=== PATIENT | female | born 1985 | race Caucasian/White ===

== ENCOUNTER 2016-08-27 10:44 | Emergency (ER) | payer SELFPAY | END 2016-08-27 12:15 | disposition left against medical advice (07) | LOC: UCCORT 10:44 | DX: M54.9 Dorsalgia, unspecified (principal); Z53.21 Procedure and treatment not carried out due to patient leaving prior to being seen by health care provider ==

== ENCOUNTER 2016-08-27 13:42 | Emergency (ER) | payer SELFPAY ==
[2016-08-27 14:50] VITALS: BP 132/75
--- NOTE | 2016-08-27 17:22 | UC ---
Back Pain HPI - HPI Summary HPI Summary: pt p/w 1 week of acute on chronic back pain. pain is sharp 7/10 in the lower back and radiates to the back of the calf. w/w walking. in fact, pt reports that she has been so weak that she is unable to make it down the stairs for food or water. so she has been living on dry cereal. she reports multiple falls d/t weakness and dizziness. she also reports syncopal episodes associated with dizziness and left cp and sob. cp is describes as squeezing. fh pos for mi <50 yo. - History of Current Complaint Chief Complaint: UCBackPain Stated Complaint: BACK PAIN Time Seen by Provider: 08/27/16 14:45 Hx Obtained From: Patient Hx Last Menstrual Period: 08/25/16 ?: No Onset/Duration: Gradual Onset, Lasting Weeks - ~3months, Worse Since - last week Severity Initially: Moderate Severity Currently: Moderate Pain Intensity: 7 Pain Scale Used: 0-10 Numeric Character: Sharp, Dull, Aching Aggravating: Movement, Walking Alleviating: Rest Associated Signs And Symptoms: Positive: Weakness, Numbness - chronic, Tingling - chronic. Negative: Swelling, Redness, Bruising, Fever, Abdominal Pain, Flank Pain - Allergies/Home Medications Allergies/Adverse Reactions: Allergies Allergy/AdvReac Type Severity Reaction Status Date / Time Amoxicillin Allergy Intermediate Hives Verified 08/27/16 14:47 Haloperidol [From Haldol] AdvReac See Comment Verified 08/27/16 14:47 Sumatriptan [From Imitrex] AdvReac Headache Verified 08/27/16 14:47 Home Medications: Home Medications Ibuprofen TAB* [Motrin TAB* 600 MG] 600 mg PO Q6H PRN 08/27/16 [History Confirmed 08/27/16] PMH/Surg Hx/FS Hx/Imm Hx Endocrine History Of: Reports: Thyroid Disease - Hypothyroidism Denies: Diabetes Cardiovascular History Of: Denies: Cardiac Disorders, Hypertension, Pacemaker/ICD, Congestive Heart Failure, Deep Vein Thrombosis Respiratory History Of: Reports: Bronchitis Denies: COPD, Asthma, Pneumonia, Pulmonary Embolism GI/ History Of: Reports: Ulcer - gastric Denies: Gastrointestinal Bleed, Gall Bladder Disease, Kidney Stones Neurological History Of: Reports: Migraine Denies: TIA, CVA, Dementia, Seizures Psychological History Of: Reports: Anxiety, Depression, Bipolar Disorder Denies: Schizophrenia Cancer History Of: Denies: Lung Cancer Other History Of: Negative For: Anticoagulant Therapy - Surgical History Surgical History: Yes Surgery Procedure, Year, and Place: C-Sections, 2008 2010, [place] - Family History Known Family History: Positive: Hypertension Negative: Cardiac Disease, Diabetes - Social History Occupation: Employed Part-time Alcohol Use: None Alcohol Amount: not since 2013 Substance Use Type: Marijuana, Other - h/o coccaine abuse Substance Use Comment - Amount & Last Used: DMX--none since 12/2014 Smoking Status (MU): Heavy Every Day Tobacco Smoker Type: Cigarettes Amount Used/How Often: 1/2 ppd Length of Time of Smoking/Using Tobacco: 10 Years Have You Smoked in the Last Year: Yes Household Exposure Type: Cigarettes Cessation Counseling: Counseled 3+Min - 10 Min - Immunization History Most Recent Influenza Vaccination: never had one Most Recent Tetanus Shot: 2009 Most Recent Pneumonia Vaccination: NA Review of Systems Constitutional: Fatigue Skin: Negative Eyes: Negative ENT: Negative Respiratory: Shortness Of Breath Cardiovascular: Chest Pain Gastrointestinal: Other - nausea Genitourinary: Negative Motor: Weakness Neurovascular: Negative Musculoskeletal: Myalgia Neurological: Weakness, Numbness - chronic Psychological: Negative All Other Systems Reviewed And Are Negative: Yes Physical Exam Triage Information Reviewed: Yes Appearance: Well-Appearing, Pain Distress - mild, Obese, Other: - pt in wheel chair Vital Signs: Initial Vital Signs Temp 99.0 F 08/27/16 14:42 Pulse 91 08/27/16 14:42 Resp 14 08/27/16 14:42 BP 132/75 08/27/16 14:42 Pulse Ox 100 08/27/16 14:42 Vital Signs Reviewed: Yes Eyes: Positive: Conjunctiva Clear. Negative: Discharge ENT: Positive: Hearing grossly normal. Negative: Muffled/hoarse voice Neck exam: Normal Neck: Positive: Supple Respiratory: Positive: Lungs clear, Normal breath sounds, No respiratory distress, No accessory muscle use Cardiovascular: Positive: RRR, No Murmur Musculoskeletal: Positive: Strength Intact, No Edema, ROM Limited @ - d/t pain Neurological: Positive: Alert, Muscle Tone Normal - strength sensation and reflexes intact bl Psychological: Positive: Age Appropriate Behavior Skin Exam: Normal Back Pain Course/Dx - Differential Dx/Diagnosis Differential Diagnosis/HQI/PQRI: Herniated Disc, Strain - chronic low back pain , cp, lightheadedness, Other - cp, mi, angina Provider Diagnoses: cp unknown judit, syncope, lightheadedness, low back pain Discharge - Discharge Plan Condition: Stable Disposition: AGAINST MEDICAL ADVICE Prescriptions: Cyclobenzaprine TAB* [Flexeril TAB*] 10 mg PO TID PRN #30 tab PRN Reason: Pain Patient Education Materials: Syncope (ED), Lightheadedness (ED), Low Back Strain (ED) Referrals: MARIANO Jaffe [Primary Care Provider] - As Soon As Possible Additional Instructions: YOU ARE LEAVING AGAINST MEDICAL ADVISE. WE HAVE RECOMMENDED TRANSFER TO THE ED FOR THOUROUGH EVALUATION OF YOUR CHEST PAIN. YOU HAVE REFUSED. YOUR RISKS INCLUDE DAMAGE TO THE HEART, CARDIAC ARRYTHMIA, CARDIAC ARREST AND . IF YOU CHANGE YOUR MIND, YOU CAN STILL GO TO THE ED AT ANY TIME. YOU WOULD LIKELY BENEFIT FROM OSTEOPATHIC TREATMENT. WE RECOMMEND THAT YOU FIND AN OSTEOPATHIC PHYSICIAN IN YOUR AREA WHO FOCUSES EXCLUSIVELY ON OSTEOPATHIC MANIPULATIVE MEDICINE WITH EXPERTISE IN MYOFACIAL, LYMPHATIC, VISCERAL AND INTEROSSEOUS WORK
== END 2016-08-27 16:20 | disposition left against medical advice (07) ==
LOC: UCCORT 13:42
DX: R07.89 Other chest pain (principal); R55 Syncope and collapse; R42 Dizziness and giddiness; M54.5 Low back pain; E03.9 Hypothyroidism, unspecified; G43.909 Migraine, unspecified, not intractable, without status migrainosus; F41.8 Other specified anxiety disorders; F31.9 Bipolar disorder, unspecified; E66.9 Obesity, unspecified; Z88.1 Allergy status to other antibiotic agents; Z88.8 Allergy status to other drugs, medicaments and biological substances; F17.210 Nicotine dependence, cigarettes, uncomplicated; Z71.6 Tobacco abuse counseling
CPT/HCPCS: 93005; 99212; G0463

== ENCOUNTER 2017-02-03 14:38 | Inpatient (IN) | payer OTHER ==
[2017-02-03 17:11] LABS: Hematocrit 38 % (35-47); Hemoglobin 12.9 g/dl (12.0-16.0); Mean Corpuscular HGB Conc 34 g/dl (31-36); Mean Corpuscular Hemoglobin 29 pg (27-31); Mean Corpuscular Volume 83 fL (80-97); Mean Platelet Volume 8 um3 (7.4-10.4); Red Blood Count 4.54 10^6/ul (4.0-5.4); Red Cell Distribution Width 15 % (10.5-15); White Blood Count 9.8 10^3/ul (3.5-10.8)
[2017-02-03 17:29] LABS: Urine Bacteria 1+ (Absent); Urine Bilirubin Negative (Negative); Urine Glucose Negative (Negative); Urine Nitrite Negative (Negative)
[2017-02-03 17:30] LABS: ALT 18 U/L (7-52); AST 20 U/L (13-39); Alkaline Phosphatase 36 U/L (34-104); Anion Gap 4 mmol/L (2-11); BUN/Creatinine Ratio 10.2 (8-20); Blood Urea Nitrogen 9 mg/dL (6-24); CO2 Carbon Dioxide 26 mmol/L (22-32); Calcium 9.1 mg/dL (8.6-10.3); Chloride 107 mmol/L (101-111); EGFR African American 96.4 (>60); EGFR Non-African American 74.9 (>60); Glucose 90 mg/dL (70-100); Potassium 3.9 mmol/L (3.5-5.0); Sodium 137 mmol/L (133-145)
[2017-02-03 17:35] LABS: Benzodiazepine Urine Screen None Detected (None Detect)
[2017-02-03] MEDS ORDERED: Tetan/Diph/Pertus SYR(Tdap)* 0.5 ML SYR(BOOSTRIX) use SYR IM ONE (17:38)
[2017-02-03] MEDS ORDERED: Ketorolac INJ* 60 MG/2 ML VIAL IM ONE (17:38)
[2017-02-03 17:49] LABS: Acetaminophen < 15 mcg/mL; Alcohol < 10 mg/dL (<10); Salicylate < 2.50 mg/dL (<30)
[2017-02-03 17:59] LABS: TSH (Thyroid Stimulating Horm) 7.31 mcIU/mL (0.34-5.60)
--- NOTE | 2017-02-03 19:00 | ED ---
Chastity Pagan Thomas, scribed for Hugh Myles MD on 02/03/17 at 1747 . Psychiatric Complaint - HPI Summary HPI Summary: The pt is a 31 y/o F presenting to the ED c/o SI without a plan. She reports that she fell off the wagon a week ago. She says that she is homeless starting today. She has been self-harming via cutting by a shaving razor. She last cut herself yesterday. She has cuts to her wrists. She denies any other plans to hurt herself. She has stopped taking antidepressants as of a year ago. She has auditory hallucinations, paranoia, decreased appetite, and insomnia. She additionally c/o lower abd pain that began 5 days ago. Three days ago, she had an ultrasound performed at [place] that showed a ruptured ovarian cyst. The pt rates the pain 8/10. The pain is aggravated and alleviated by nothing. The patient has treated the pain with nothing [employer]. She additionally c/o lower back pain. She is requesting NSAIDs and does not want opioids. PMHx: depression , anxiety, sciatica. PSHx: C-sections. SHx: smoking, marijuana use. 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 FHx: DM, schizophrenia. - History Of Current Complaint Chief Complaint: EDAbdPain Time Seen by Provider: 02/03/17 17:27 Hx Obtained From: Patient Hx Last Menstrual Period: 08/25/16 Onset/Duration: Lasting Weeks - 1, Still Present Timing: Constant Character: Depressed Alleviating Factor(s): Nothing Associated Signs And Symptoms: Positive: Hallucinating - auditory, Paranoid Behavior, Sleep Disturbance, Appetite Change Related History: Positive For: Prior Psychiatric Issues Has Suicidal: Reports: Thoughts, Demonstrates Gesture. Denies: With A Plan Ingestion History: Type/Name Of Drug - Marijuana starting a week ago - Allergies/Home Medications Allergies/Adverse Reactions: Allergies Allergy/AdvReac Type Severity Reaction Status Date / Time Amoxicillin Allergy Intermediate Hives Verified 08/27/16 14:47 Haloperidol [From Haldol] AdvReac See Comment Verified 08/27/16 14:47 Sumatriptan [From Imitrex] AdvReac Headache Verified 08/27/16 14:47 Home Medications: Home Medications NK [No Home Medications Reported] 02/03/17 [History Confirmed 02/03/17] PMH/Surg Hx/FS Hx/Imm Hx Previously Healthy: No Endocrine/Hematology History: Reports: Hx Thyroid Disease - Hypothyroidism Denies: Hx Anticoagulant Therapy, Hx Blood Disorders, Hx Blood Transfusions, Hx Bone Marrow Disease, Hx Diabetes, Hx Systemic Lupus Erythematosus, Hx Sickle Cell Disease, Hx Anemia, Hx Unexplained Bleeding, Other Endocrine/Hematological Disorders Cardiovascular History: Denies: Hx Aneurysm, Hx Angina, Hx Angioplasty, Hx Auto Implanted Cardiovert Defib, Hx Cardiac Arrest, Hx Cardiomegaly, Hx Congenital Heart Disease, Hx Congestive Heart Failure, Hx Coronary Artery Disease, Hx Deep Vein Thrombosis, Hx Embolism, Hx Hypercholesterolemia, Hx Hypotension, Hx Hypertension, Hx Pacemaker/ICD, Hx Peripheral Vascular Disease, Hx Rheumatic Fever, Hx Syncope, Hx Valvular Heart Disease, Other Cardiovascular Problems/Disorders Respiratory History: Reports: Hx Seasonal Allergies Denies: Hx Asthma, Hx Chronic Bronchitis, Hx Chronic Obstructive Pulmonary Disease (COPD), Hx Cystic Fibrosis, Hx Lung Cancer, Hx Pleural Effusion, Hx Pneumonia, Hx Pulmonary Edema, Hx Pulmonary Embolism, Hx Sleep Apnea, Other Respiratory Problems/Disorders GI History: Reports: Hx Gastroesophageal Reflux Disease, Hx Ulcer - gastric Denies: Hx Cirrhosis, Hx Crohn's Disease, Hx Diverticulosis, Hx Gall Bladder Disease, Hx Gastrointestinal Bleed, Hx Hiatal Hernia, Hx Irritable Bowel, Hx Jaundice, Hx Obstructive Bowel, Hx Ileostomy, Hx Pyloric Stenosis, Other GI Disorders History: Denies: Hx Acute Renal Failure, Hx Benign Prostatic Hyperplasia, Hx Chronic Renal Failure, Hx Dialysis, Hx Kidney Infection, Hx Kidney Stones, Other Problems/Disorders Musculoskeletal History: Reports: Hx Back Problems, Hx Scoliosis Denies: Hx Arthritis, Hx Bursitis, Hx Congenital Bone Abnormalities, Hx Fibromyalgia, Hx Gout, Hx Orthopedic Injury, Hx Osteoporosis, Hx Tendonitis, Other Musculoskeletal History Sensory History: Reports: Hx Contacts or Glasses Denies: Hx Cataracts, Hx Eye Injury, Hx Eye Prosthesis, Hx Glaucoma, Hx Legally Blind, Hx Macular Degeneration, Hx Vision Problem, Hx Deafness, Hx Hearing Aid, Hx Hearing Problem, Other Sensory Impairments Opthamlomology History: Reports: Hx Contacts or Glasses Denies: Hx Cataracts, Hx Eye Injury, Hx Eye Prosthesis, Hx Glaucoma, Hx Legally Blind, Hx Macular Degeneration, Hx Vision Problem, Other Sensory Impairments Neurological History: Reports: Hx Migraine Denies: Hx Dementia, Hx Developmental Delay, Hx Headaches, Hx Nerve Disease, Hx Seizures, Hx Spinal Cord Injury, Hx Transient Ischemic Attacks (TIA), Other Neuro Impairments/Disorders Psychiatric History: Reports: Hx Anxiety, Hx Depression, Hx Panic Disorder, Hx Inpatient Treatment, Hx Community Mental Health Tx, Hx Bipolar Disorder, Hx Suicide Attempt, Hx Substance Abuse, Other Psychiatric Issues/Disorders Denies: Hx Attention Deficit Hyperactivity Disorder, Hx Eating Disorder, Hx Post Traumatic Stress Disorder, Hx Schizophrenia, Hx of Violent Episodes Against Others - Surgical History Surgery Procedure, Year, and Place: C-Sections, 2008 2010, [place] Hx Anesthesia Reactions: No Infectious Disease History: No Infectious Disease History: Denies: Hx Clostridium Difficile, Hx Hepatitis, Hx Human Immunodeficiency Virus (HIV), Hx of Known/Suspected MRSA, Hx Shingles, Hx Tuberculosis, Hx Known/ Suspected VRE, Hx Known/Suspected VRSA, History Other Infectious Disease, Traveled Outside the [place] in Last 30 Days - Family History Known Family History: Positive: Hypertension Negative: Cardiac Disease, Diabetes - Social History Alcohol Use: None Alcohol Amount: not since 2013 Substance Use Type: Reports: Marijuana, Other Substance Use Comment - Amount & Last Used: DMX--none since 12/2014 Hx Tobacco Use: Yes Smoking Status (MU): Heavy Every Day Tobacco Smoker Type: Cigarettes Amount Used/How Often: 1/2 ppd Length of Time of Smoking/Using Tobacco: 10 Years Have You Smoked in the Last Year: Yes Review of Systems Negative: Fever Positive: Abdominal Pain - lower abd, US showed ruptured cyst recently Positive: Other - POS: back pain Psychological: Other - POS: SI without a plan, recent self-harm, appetite reduction, sleep disturbance, auditory hallucinations, paranoia All Other Systems Reviewed And Are Negative: Yes Physical Exam - Summary Physical Exam Summary: The patient is well-nourished in no acute distress and in no acute pain. The skin is warm and dry and skin color reflects adequate perfusion. There are superficial abrasions to her left arm. HEENT: The head is normocephalic and atraumatic. The pupils are equal and reactive. The conjunctivae are clear and without drainage. Nares are patent and without drainage. Mouth reveals moist mucous membranes and the throat is without erythema and exudate. The external ears are intact. The ear canals are patent and without drainage. The tympanic membranes are intact. Neck is supple with full range of motion and non-tender. There are no carotid bruits. There is no neck vein distension. Respiratory: Chest is non-tender. Lungs are clear to auscultation and breath sounds are symmetrical and equal. Cardiovascular: Heart is regular rate and rhythm. There is no murmur or rub auscultated. There is no peripheral edema and pulses are symmetrical and equal. Abdomen: The abdomen is soft and obese. It is tender to the LLQ. There are normal bowel sounds heard in all four quadrants and there is no organomegaly palpated. Musculoskeletal: There is no back pain noted. Extremities are non-tender with full range of motion. There is good capillary refill. There is no peripheral edema or calf tenderness elicited. Neurological: Patient is alert and oriented to person, place and time. The patient has symmetrical motor strength in all four extremities. Cranial nerves are grossly intact. Deep tendon reflexes are symmetrical and equal in all four extremities. Psychiatric: She is depressed and angry. Triage Information Reviewed: Yes Vital Signs On Initial Exam: Initial Vitals Temp Pulse Resp BP Pulse Ox 98.6 F 63 16 143/82 100 02/03/17 14:46 02/03/17 14:46 02/03/17 14:46 02/03/17 14:46 02/03/17 14:46 Vital Signs Reviewed: Yes - [place] Coma Scale Coma Scale Total: 15 Diagnostics - Vital Signs Vital Signs Temp Pulse Resp BP Pulse Ox 02/03/17 15:06 100 F 98 18 131/81 99 02/03/17 14:46 98.6 F 63 16 143/82 100 - Laboratory Lab Results: Lab Results 02/03/17 02/03/17 02/03/17 Range/Units 15:15 15:15 17:03 WBC (3.5-10.8) 10^3/ul RBC (4.0-5.4) 10^6/ul Hgb (12.0-16.0) g/dl Hct (35-47) % MCV (80-97) fL MCH (27-31) pg MCHC (31-36) g/dl RDW (10.5-15) % Plt Count (150-450) 10^3/ul MPV (7.4-10.4) um3 Neut % (Auto) (38-83) % Lymph % (Auto) (25-47) % [place] % (Auto) (1-9) % Eos % (Auto) (0-6) % Baso % (Auto) (0-2) % Absolute Neuts (auto) (1.5-7.7) 10^3/ul Absolute Lymphs (auto) (1.0-4.8) 10^3/ul Absolute Monos (auto) (0-0.8) 10^3/ul Absolute Eos (auto) (0-0.6) 10^3/ul Absolute Basos (auto) (0-0.2) 10^3/ul Absolute Nucleated RBC 10^3/ul Nucleated RBC % Sodium 137 (133-145) mmol/L Potassium 3.9 (3.5-5.0) mmol/L Chloride 107 (101-111) mmol/L Carbon Dioxide 26 (22-32) mmol/L Anion Gap 4 (2-11) mmol/L BUN 9 (6-24) mg/dL Creatinine 0.88 (0.51-0.95) mg/dL Est GFR ( Amer) 96.4 (>60) Est GFR (Non-Af Amer) 74.9 (>60) BUN/Creatinine Ratio 10.2 (8-20) Glucose 90 (70-100) mg/dL Calcium 9.1 (8.6-10.3) mg/dL Total Bilirubin 0.50 (0.2-1.0) mg/dL AST 20 (13-39) U/L ALT 18 (7-52) U/L Alkaline Phosphatase 36 (34-104) U/L Total Protein 7.0 (6.4-8.9) g/dL Albumin 4.0 (3.2-5.2) g/dL Globulin 3.0 (2-4) g/dL Albumin/Globulin Ratio 1.3 (1-3) TSH Pending Beta HCG, Quant < 0.60 mIU/mL Urine Color Yellow Urine Appearance Cloudy Urine pH 7.0 (5-9) Ur Specific [place] 1.025 (1.010-1.030) Urine Protein Negative (Negative) Urine Ketones Negative (Negative) Urine Blood Negative (Negative) Urine Nitrate Negative (Negative) Urine Bilirubin Negative (Negative) Urine Urobilinogen Negative (Negative) Ur Leukocyte Esterase Trace H (Negative) Urine WBC (Auto) Trace(0-5/hpf) (Absent) Urine RBC (Auto) Absent (Absent) Ur Squamous Epith Cells Present H (Absent) Calcium Oxalate Crystal Present H (Absent) Urine Bacteria 1+ H (Absent) Urine Glucose Negative (Negative) Salicylates Pending Urine Opiates Screen None detected (None Detect) Acetaminophen Pending Ur Barbiturates Screen None detected (None Detect) Ur Phencyclidine Scrn None detected (None Detect) Ur Amphetamines Screen None detected (None Detect) U Benzodiazepines Scrn None detected (None Detect) Urine Cocaine Screen None detected (None Detect) U Cannabinoids Screen Presumptive positive H (None Detect) Serum Alcohol Pending 02/03/17 Range/Units 17:03 WBC 9.8 (3.5-10.8) 10^3/ul RBC 4.54 (4.0-5.4) 10^6/ul Hgb 12.9 (12.0-16.0) g/dl Hct 38 (35-47) % MCV 83 (80-97) fL MCH 29 (27-31) pg MCHC 34 (31-36) g/dl RDW 15 (10.5-15) % Plt Count 304 (150-450) 10^3/ul MPV 8 (7.4-10.4) um3 Neut % (Auto) 61.5 (38-83) % Lymph % (Auto) 27.8 (25-47) % [place] % (Auto) 7.1 (1-9) % Eos % (Auto) 2.3 (0-6) % Baso % (Auto) 1.3 (0-2) % Absolute Neuts (auto) 6.1 (1.5-7.7) 10^3/ul Absolute Lymphs (auto) 2.7 (1.0-4.8) 10^3/ul Absolute Monos (auto) 0.7 (0-0.8) 10^3/ul Absolute Eos (auto) 0.2 (0-0.6) 10^3/ul Absolute Basos (auto) 0.1 (0-0.2) 10^3/ul Absolute Nucleated RBC 0.01 10^3/ul Nucleated RBC % 0.1 Sodium (133-145) mmol/L Potassium (3.5-5.0) mmol/L Chloride (101-111) mmol/L Carbon Dioxide (22-32) mmol/L Anion Gap (2-11) mmol/L BUN (6-24) mg/dL Creatinine (0.51-0.95) mg/dL Est GFR ( Amer) (>60) Est GFR (Non-Af Amer) (>60) BUN/Creatinine Ratio (8-20) Glucose (70-100) mg/dL Calcium (8.6-10.3) mg/dL Total Bilirubin (0.2-1.0) mg/dL AST (13-39) U/L ALT (7-52) U/L Alkaline Phosphatase (34-104) U/L Total Protein (6.4-8.9) g/dL Albumin (3.2-5.2) g/dL Globulin (2-4) g/dL Albumin/Globulin Ratio (1-3) TSH Beta HCG, Quant mIU/mL Urine Color Urine Appearance Urine pH (5-9) Ur Specific [place] (1.010-1.030) Urine Protein (Negative) Urine Ketones (Negative) Urine Blood (Negative) Urine Nitrate (Negative) Urine Bilirubin (Negative) Urine Urobilinogen (Negative) Ur Leukocyte Esterase (Negative) Urine WBC (Auto) (Absent) Urine RBC (Auto) (Absent) Ur Squamous Epith Cells (Absent) Calcium Oxalate Crystal (Absent) Urine Bacteria (Absent) Urine Glucose (Negative) Salicylates Urine Opiates Screen (None Detect) Acetaminophen Ur Barbiturates Screen (None Detect) Ur Phencyclidine Scrn (None Detect) Ur Amphetamines Screen (None Detect) U Benzodiazepines Scrn (None Detect) Urine Cocaine Screen (None Detect) U Cannabinoids Screen (None Detect) Serum Alcohol Result Diagrams: 02/03/17 17:03 02/03/17 17:03 Lab Statement: Any lab studies that have been ordered have been reviewed, and results considered in the medical decision making process. Course/Dx - Course Course Of Treatment: She is cleared for MHE at 18:43. I reviewed her records from [place], where she was seen by Dr. Barnes. It looks like she had a left ovarian cyst that was not ruptured. - Differential Dx/Clinical Impression Differential Diagnosis/HQI/PQRI: Positive: Other - borderline personality, ovarian cyst left Provider Diagnosis: Depression, Suicidal ideation, laceration superfical left arm Discharge - Discharge Plan Condition: Fair Disposition: OTHER Discharge Disposition Comment: The patient is signed out from Dr. Myles to Dr. Bell pending MHE Referrals: Jalen Conti,Jalen [Primary Care Provider] - The documentation as recorded by the Chastity morris Thomas accurately reflects the service I personally performed and the decisions made by me, Hugh Myles MD.
[2017-02-04] MEDS: Acetaminophen TAB* 325 MG PO PRN ×2 (00:22→18:18)
[2017-02-04] MEDS ORDERED: Ibuprofen TAB* 600 MG ONE (01:27)
[2017-02-04] MEDS: Ibuprofen TAB* 600 MG PO PRN ×2 (01:30→09:34)
[2017-02-04] MEDS: Vitamin THERAPEUTIC TAB PO SCH (08:38)
--- NOTE | 2017-02-04 11:40 | PN ---
[facility]: Group Therapy Note - Service Type Service Type: 22493 Group Psychotherapy - Cognitive Behavioral Group Therapy ( CBT):Patient was attentive and participatory in CBT programming this morning, and remained in good behavioral control. Patient expressed positive insights regarding relevant treatment interventions and goals.
[2017-02-04] MEDS: Al Hydrox/Mg Hydrox/Simet LIQ* 30 ML UDC PO PRN (11:49)
[2017-02-04] MEDS ORDERED: Mouth Piece, Nicotine* 1 EACH CARTRIDGE INH PRN (13:14)
[2017-02-04] MEDS: Gabapentin CAP(*) 300 MG PO PRN ×2 (13:52→13:53)
[2017-02-04] MEDS: Ketorolac TAB * 10 MG TAB PO PRN ×2 (14:43→21:12)
[2017-02-04] MEDS: QUEtiapine TAB* 25 MG PO PRN (22:04)
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
[2017-02-05] MEDS: Ketorolac TAB * 10 MG TAB PO PRN ×3 (04:10→16:49)
[2017-02-05] MEDS: Vitamin THERAPEUTIC TAB PO SCH (10:05)
[2017-02-05] MEDS: Gabapentin CAP(*) 300 MG PO PRN ×2 (12:45→21:25)
[2017-02-05] MEDS: Acetaminophen TAB* 325 MG PO PRN (12:46)
[2017-02-05] MEDS: Nicotine Inhaler* 10 MG AMP INH PRN (12:50)
--- NOTE | 2017-02-05 16:36 | PN ---
<HarrisonSapna - Last Filed: 02/05/17 17:36> Subjective - Subjective Subjective: Janelle is sitting in milieu reading, wearing hoodie covering up most of her face. Denies suicidal ideation or SIB. Reading a book, one she states are on cults. Talks about her partner breaking up with her since hospital admission. Objective - Appearance Dysmorphic Features: No Hygiene: Normal Grooming: Disheveled - Behavior Psychomotor Activities: Normal Exhibits Abnormal Movement: No - Attitude and Relatedness Attitude and Relatedness: Guarded Eye Contact: Fair - Speech Quality: Unpressured Latencies: Normal Quantity: Terse - Mood Patient's Decription of Mood: "Anxious" - Affect Observed Affect: Constricted Affect Consistent with: Dysphoria - Thought Process Patient's Thought Process: Coherent Thought Content: No Passive Wish, No Suicidal Planning, No Homicidal Ideation, No Paranoid Ideation - Sensorium Experiencing Hallucinations: No, Sensorium is Clear - Level of Consciousness Level of Consciousness: Alert Orientation: Yes Intact, Yes Orientated to Time, Yes Orientated to Place, Yes Orientated to Person - Impulse Control Impulse Control: Intact - Insight and Judgement Insight and Judgement: Fair - Medication Management Medication Management Adherence: Yes Assessment - Assessment Merits Inpatient Hospitalization: For Ongoing Evaluation Clinical Impression: 33 year old with past admission to [facility] and [facility]. Appears content to sit and read rather than interact with others around her. She is focused on finding housing post discharge. Plan - Plan Treatment Plan: Name: JOSE A HASSAN Birthdate: 1985 [id number] Medications: Current Medications Acetaminophen (Tylenol Tab*) 650 mg PO Q4H PRN PRN Reason: PAIN or TEMP > 101 F Last Admin: 02/05/17 12:46 Dose: 650 mg Al Hydrox/Mg Hydrox/Simethicone (Maalox Plus*) 30 ml PO Q4H PRN PRN Reason: INDIGESTION Last Admin: 02/04/17 11:49 Dose: 30 ml Device (Nicotine Mouth Piece*) 1 each INH .USE WITH NICOTROL PRN PRN Reason: CRAVING Last Admin: 02/05/17 12:50 Dose: 1 each Gabapentin (Neurontin Cap(*)) 300 mg PO BID PRN PRN Reason: ANXIETY Last Admin: 02/05/17 12:45 Dose: 300 mg Ketorolac Tromethamine (Toradol Tab *) 10 mg PO Q6H PRN PRN Reason: PAIN Last Admin: 02/05/17 10:04 Dose: 10 mg Multivitamins (Theragran Tab*) 1 tab PO DAILY SANA Last Admin: 02/05/17 10:05 Dose: Not Given Nicotine (Nicotine Inhaler*) 10 mg INH Q2H PRN PRN Reason: CRAVING Last Admin: 02/05/17 12:50 Dose: 10 mg Quetiapine Fumarate (Seroquel Tab*) 25 mg PO BEDTIME PRN PRN Reason: INSOMNIA Last Admin: 02/04/17 22:04 Dose: 25 mg <Amarjit Matos - Last Filed: 02/06/17 18:15> Subjective - Subjective Subjective: Reviewed this note written by student psychiatric nurse practitioner, Sapna Terry, and approved it after discussion with her. Plan - Plan Treatment Plan: Name: JOSE A HASSAN Birthdate: 1985 [id number] Medications: Current Medications Acetaminophen (Tylenol Tab*) 650 mg PO Q4H PRN PRN Reason: PAIN or TEMP > 101 F Last Admin: 02/06/17 17:25 Dose: 650 mg Al Hydrox/Mg Hydrox/Simethicone (Maalox Plus*) 30 ml PO Q4H PRN PRN Reason: INDIGESTION Last Admin: 02/04/17 11:49 Dose: 30 ml Device (Nicotine Mouth Piece*) 1 each INH .USE WITH NICOTROL PRN PRN Reason: CRAVING Last Admin: 02/05/17 12:50 Dose: 1 each Gabapentin (Neurontin Cap(*)) 300 mg PO BID PRN PRN Reason: ANXIETY Last Admin: 02/06/17 08:01 Dose: 300 mg Ketorolac Tromethamine (Toradol Tab *) 10 mg PO Q6H PRN PRN Reason: PAIN Last Admin: 02/06/17 10:55 Dose: 10 mg Multivitamins (Theragran Tab*) 1 tab PO DAILY SANA Last Admin: 02/06/17 08:57 Dose: Not Given Nicotine (Nicotine Inhaler*) 10 mg INH Q2H PRN PRN Reason: CRAVING Last Admin: 02/06/17 17:24 Dose: 10 mg Quetiapine Fumarate (Seroquel Tab*) 25 mg PO BEDTIME PRN PRN Reason: INSOMNIA Last Admin: 02/05/17 21:25 Dose: 25 mg
[2017-02-05] MEDS: QUEtiapine TAB* 25 MG PO PRN (21:25)
[2017-02-06] MEDS: Gabapentin CAP(*) 300 MG PO PRN ×2 (08:01→19:59)
[2017-02-06] MEDS: Vitamin THERAPEUTIC TAB PO SCH (08:57)
[2017-02-06] MEDS: Ketorolac TAB * 10 MG TAB PO PRN ×2 (10:55→21:14)
[2017-02-06] MEDS: Nicotine Inhaler* 10 MG AMP INH PRN (17:24)
[2017-02-06] MEDS: Acetaminophen TAB* 325 MG PO PRN (17:25)
[2017-02-07] MEDS: QUEtiapine TAB* 25 MG PO PRN (02:30)
[2017-02-07] MEDS: Ketorolac TAB * 10 MG TAB PO PRN ×3 (02:30→17:39)
[2017-02-07] MEDS: Nicotine Inhaler* 10 MG AMP INH PRN (08:40)
[2017-02-07] MEDS: Gabapentin CAP(*) 300 MG PO PRN ×2 (08:41→17:41)
[2017-02-07] MEDS: Vitamin THERAPEUTIC TAB PO SCH (08:47)
[2017-02-07] MEDS: Acetaminophen TAB* 325 MG PO PRN ×2 (11:19→20:47)
--- NOTE | 2017-02-07 14:05 | PN ---
Subjective - Subjective Service Type: [id number] Hosp care 15 min low complexity Subjective: Patient states that her rights to prompt medical care are being violated. "I just had an exploded ovarian cyst and this is worse than any pain you could imagine." She reports getting a recent diagnosis of polycystic ovarian syndrome at [facility] and that she likely needs a hysterectomy, because her mother had one. "I need an ultrasound right now and if I here my mother is going to get a fat lawsuit against this hospital." She denies SI and states the hospital is keeping her here against her will. Objective - Appearance Appearance: Well Developed/Nourished Dysmorphic Features: No Hygiene: Normal Grooming: Well Kept - Behavior Psychomotor Activities: Normal Exhibits Abnormal Movement: No - Attitude and Relatedness Attitude and Relatedness: Cooperative Eye Contact: Fair - Speech Quality: Unpressured Latencies: Normal Quantity: Appropriate - Mood Patient's Decription of Mood: "Terrible" - Affect Observed Affect: Fair Affect Consistent with: Euthymia - Thought Process Patient's Thought Process: Goal Directed Thought Content: No Passive Wish, No Suicidal Planning, No Homicidal Ideation, No Paranoid Ideation - Sensorium Experiencing Hallucinations: No, Sensorium is Clear Type of Hallucinations: Visual: No, Auditory: No, Command: No - Level of Consciousness Level of Consciousness: Alert Orientation: Yes Intact, Yes Orientated to Time, Yes Orientated to Place, Yes Orientated to Person - Impulse Control Impulse Control: Tenuous - Insight and Judgement Insight and Judgement: Impaired - Group Participation Particating in Group Activities: No - Medication Management Medication Management Adherence: No Assessment - Assessment Merits Inpatient Hospitalization: Consolidate Improvements, Pending Safe DC Plan Inpatient DSM-IV Dx: Unspecified Mood DO Clinical Impression: 31 y.o. single, white female recently broke up with significant other and is now homeless and threatening suicide. Plan - Plan Treatment Plan: Name: JOSE A HASSAN Birthdate: 1985 [id number] Patient c/o pain but vitals are stable and she does not appear in distress. Patient likely malingering. Will order repeat U/S of pelvis. Colace for complaints of constipation. Follow up with clinical psychiatrist tomorrow. Continued Medication Management: Continue Outpt Medication Medications: Current Medications Acetaminophen (Tylenol Tab*) 650 mg PO Q4H PRN PRN Reason: PAIN or TEMP > 101 F Last Admin: 02/07/17 11:19 Dose: 650 mg Al Hydrox/Mg Hydrox/Simethicone (Maalox Plus*) 30 ml PO Q4H PRN PRN Reason: INDIGESTION Last Admin: 02/04/17 11:49 Dose: 30 ml Device (Nicotine Mouth Piece*) 1 each INH .USE WITH NICOTROL PRN PRN Reason: CRAVING Last Admin: 02/05/17 12:50 Dose: 1 each Gabapentin (Neurontin Cap(*)) 300 mg PO BID PRN PRN Reason: ANXIETY Last Admin: 02/07/17 08:41 Dose: 300 mg Ketorolac Tromethamine (Toradol Tab *) 10 mg PO Q6H PRN PRN Reason: PAIN Last Admin: 02/07/17 11:51 Dose: 10 mg Multivitamins (Theragran Tab*) 1 tab PO DAILY SANA Last Admin: 02/07/17 08:47 Dose: Not Given Nicotine (Nicotine Inhaler*) 10 mg INH Q2H PRN PRN Reason: CRAVING Last Admin: 02/07/17 08:40 Dose: 10 mg Quetiapine Fumarate (Seroquel Tab*) 25 mg PO BEDTIME PRN PRN Reason: INSOMNIA Last Admin: 02/07/17 02:30 Dose: 25 mg - Discharge Plan Discharge Plan: Inpatient Hospitalization
[2017-02-07] MEDS: Docusate CAP* 100 MG PO SCH ×2 (14:43→20:45)
[2017-02-07] MEDS ORDERED: Docusate CAP* 100 MG ONE (14:43)
[2017-02-07] MEDS: Al Hydrox/Mg Hydrox/Simet LIQ* 30 ML UDC PO PRN (14:44)
--- NOTE | 2017-02-07 17:42 | RAD ---
Indication: RIGHT greater than LEFT pelvic pain. LMP 1-2 weeks ago. Comparison: January 31, 2008 Technique: Transabdominal pelvic ultrasound. Report: Unremarkable 11.2 x 4.4 x 6.1 cm uterus with 5.4 mm endometrium. Negative for free pelvic fluid. 2. 0.3 x 1.3 x 2.3 cm RIGHT ovary with documented vascular flow is remarkable for small follicles only. 4.1 x 2.4 x 2.6 cm LEFT ovary with documented vascular flow is remarkable for small follicles only. No extra ovarian adnexal region lesions evident. IMPRESSION: Negative pelvic ultrasound.
[2017-02-08] MEDS: Ketorolac TAB * 10 MG TAB PO PRN ×3 (00:40→23:00)
[2017-02-08] MEDS: Acetaminophen TAB* 325 MG PO PRN ×2 (08:42→20:22)
[2017-02-08] MEDS: Docusate CAP* 100 MG PO SCH ×2 (08:43→20:21)
[2017-02-08] MEDS: Gabapentin CAP(*) 300 MG PO PRN ×2 (10:21→23:00)
[2017-02-08] MEDS: Vitamin THERAPEUTIC TAB PO SCH (11:17)
--- NOTE | 2017-02-08 11:47 | PN ---
[facility]: Group Therapy Note - Service Type Service Type: [id number] Group Psychotherapy - Cognitive Behavioral Group Therapy ( CBT):Patient was attentive and participatory in CBT programming this morning, and remained in good behavioral control. Patient expressed positive insights regarding relevant treatment interventions and goals.
--- NOTE | 2017-02-08 14:51 | PN ---
Subjective - Subjective Service Type: [id number] Hosp care 15 min low complexity Subjective: Patient exercising with peers upon approach. She presents as euthymic with full affect. She reports anxiety about "not having a solid discharge plan." She is encouraged to utilize phone and computer to do so. Patient reports constipation and bloating. She denies pain or distress otherwise. She denies SI or SIB. Objective - Appearance Appearance: Obese Dysmorphic Features: No Hygiene: Normal Grooming: Well Kept - Behavior Psychomotor Activities: Normal Exhibits Abnormal Movement: No - Attitude and Relatedness Attitude and Relatedness: Superficially Cooperative Eye Contact: Good - Speech Quality: Unpressured Latencies: Normal Quantity: Appropriate - Mood Patient's Decription of Mood: "Anxious" - Affect Observed Affect: Good Affect Consistent with: Euthymia - Thought Process Patient's Thought Process: Coherent, Goal Directed, Circumstantial - housing Thought Content: No Passive Wish, No Suicidal Planning, No Homicidal Ideation, No Paranoid Ideation - Sensorium Experiencing Hallucinations: No, Sensorium is Clear Type of Hallucinations: Visual: No, Auditory: No, Command: No - Level of Consciousness Level of Consciousness: Alert Orientation: Yes Intact, Yes Orientated to Time, Yes Orientated to Place, Yes Orientated to Person - Impulse Control Impulse Control: Intact - Insight and Judgement Insight and Judgement: Fair - Group Participation Particating in Group Activities: Yes - Medication Management Medication Management Adherence: Yes Assessment - Assessment Merits Inpatient Hospitalization: For Immediate Safety, For Discharge Planning Inpatient DSM-IV Dx: I: PTSD; alcohol use d/o, in early remission; panic disorder; r/o malingering. II: borderline personality d/o. III: obesity, PCOS , back pain, GERD. IV: stressors r/t housing, financial strain. V: 50 Clinical Impression: Patient is a 31yo female who presented to the ED with SIB and SI in the context of relationships and loss of housing. She has a history of PTSD and polysubstance use d/o and has recently expressed knowledge of alter identities. Plan - Plan Treatment Plan: Name: JOSE A HASSAN Birthdate: 1985 [id number] Continue medications and add miralax for constipation. Decrease observation to q30 min checks and allow staff pass. Encourage patient to use phone and computer for discharge planning. Suggested discharge tomorrow morning. Continued Medication Management: Different Medication Medications: Current Medications Acetaminophen (Tylenol Tab*) 650 mg PO Q4H PRN PRN Reason: PAIN or TEMP > 101 F Last Admin: 02/08/17 08:42 Dose: 650 mg Al Hydrox/Mg Hydrox/Simethicone (Maalox Plus*) 30 ml PO Q4H PRN PRN Reason: INDIGESTION Last Admin: 02/07/17 14:44 Dose: 30 ml Device (Nicotine Mouth Piece*) 1 each INH .USE WITH NICOTROL PRN PRN Reason: CRAVING Last Admin: 02/05/17 12:50 Dose: 1 each Docusate Sodium (Colace Cap*) 100 mg PO BID SANA Last Admin: 02/08/17 08:43 Dose: 100 mg Gabapentin (Neurontin Cap(*)) 300 mg PO BID PRN PRN Reason: ANXIETY Last Admin: 02/08/17 10:21 Dose: 300 mg Ketorolac Tromethamine (Toradol Tab *) 10 mg PO Q6H PRN PRN Reason: PAIN Last Admin: 02/08/17 10:21 Dose: 10 mg Multivitamins (Theragran Tab*) 1 tab PO DAILY [facility] Last Admin: 02/08/17 11:17 Dose: Not Given Nicotine (Nicotine Inhaler*) 10 mg INH Q2H PRN PRN Reason: CRAVING Last Admin: 02/07/17 08:40 Dose: 10 mg Quetiapine Fumarate (Seroquel Tab*) 25 mg PO BEDTIME PRN PRN Reason: INSOMNIA Last Admin: 02/07/17 02:30 Dose: 25 mg - Discharge Plan Discharge Plan: Outpatient Follow Up Outpatient Program: Private Clinician(s) - [facility]
[2017-02-08] MEDS ORDERED: Polyethylene Glycol 3350* 17 GM PACKET PO PRN (14:55)
[2017-02-08] MEDS: QUEtiapine TAB* 25 MG PO PRN (23:00)
[2017-02-09 08:23] VITALS: BP 112/68
[2017-02-09] MEDS: Acetaminophen TAB* 325 MG PO PRN (09:11)
[2017-02-09] MEDS: Docusate CAP* 100 MG PO SCH (09:11)
[2017-02-09] MEDS: Vitamin THERAPEUTIC TAB PO SCH (10:23)
[2017-02-09] MEDS: Ketorolac TAB * 10 MG TAB PO PRN (13:53)
--- NOTE | 2017-02-09 23:46 | DS ---
CC: Benjy Jefferson, Ph.D., [place]; [facility], [place] * DISCHARGE SUMMARY: DATE OF ADMISSION: 02/03/17 DATE OF DISCHARGE: 02/09/17 SUPERVISING PSYCHIATRIST: Dr. Nikhil Armstrong * (DICTATED BY MARISA GREENE NP) DISCHARGE DIAGNOSES: [place] I: Posttraumatic stress disorder; alcohol use disorder, in early remission. [place] II: Borderline personality disorder. [place] III: Obesity, polycystic ovarian syndrome. [place] IV: Stressors related to housing and financial strain. [place] V: 55. CONDITION AT TIME OF DISCHARGE: Fair. The patient reports continued stressors in relation to housing. She reports minimal desire to continue with medication management in regards to psychopharmacology. She would like to continue targeting dissociative identity disorder through her outpatient psychologist, Dr. Benjy Jefferson, in [place]. The patient reports multiple medical issues and instructed to follow up with her primary care provider, [facility]. The patient denies active suicidal ideation with a plan. While hospitalized on the unit, she reports frustration with health and social care teacher and barriers to obtaining housing. She states interest in relocating to [place] and is instructed that this needs to be done through her DSS in her home county of [place]. MENTAL STATUS EXAM: The patient is lying on her bed, appears to be sleeping. Upon approach, she is easy to arouse and participates in interview. She is well groomed, dressed in her own clothing. Adequate ADLs. She has fair eye contact. Affect is restricted, tearful at times. She is alert and oriented x3. Her concentration is good and her memory is 3/3. Her mood is "pissed off." Her speech is soft and articulate. Thought process is circumstantial in regards to housing. Her thought content is negative for SI, HI, AH, or VH. Her insight is fair, judgment is good. Her fund of knowledge is excellent. DISCHARGE INSTRUCTIONS: Instructions are given to the patient by nursing staff. MEDICATIONS: The following medications are electronically prescribed to Jamil Sloan marla Mullins in [place]. 1. Gabapentin 300 mg p.o. b.i.d. p.r.n. anxiety, quantity 28. 2. Quetiapine 25 mg p.o. q.h.s. p.r.n. insomnia, quantity 14. All other medications can be continued by her primary care provider. DIET: Regular. ACTIVITY: Ambulation as tolerated. The patient declined tobacco cessation assistance. There are no pending labs or diagnostic studies at the time of discharge. HOSPITAL COURSE: A. Reason for admission: The patient presented to the emergency department with complaints of increasing depression and suicidal thoughts. She had engaged in self-injurious behavior. She reported dissociative identity disorder and alter identity, relapse on alcohol in the context of her roommates and child moving out of the apartment leaving her without housing. B. Psychiatric treatment rendered: The patient was admitted on a voluntary status and code status was full. She was placed on 15-minute checks for safety and encouraged to participate in supportive milieu, individual, and group psychoeducation. She participated fully in interview and unit programming. She expressed desire to refrain from opiate pain medication or benzodiazepine use as she had been free from these substances for over a year. She was recently prescribed Percocet for an ovarian cyst and reported that she used this appropriately and did not want to continue. She requested Toradol by name and reported that that was effective for lower abdominal pain. While on the unit, she was euthymic and interactive with peers. She complained to staff multiple times that her patient rights were being violated and that her medical needs were not being attended to. She saw the on-call psychiatrist over the weekend, received orders for pelvic ultrasound which was normal and she was notified of these results. Patient education was done in regards to ovarian cyst symptoms, treatment, and encouraged to follow up with her primary care provider. She participated fully in programming. The majority of her admission was over a holiday weekend and she was unable to participate in making phone calls or researching housing options. On Tuesday, the day after the holiday, she was encouraged to utilize the comfort room computer, phone, and participate in discharge planning. Her presentation changed drastically and she was more dysphoric and agitated. She blamed the hospital and staff are not helping her. She expressed agitation about the hospital and lack of assistance in finding housing. She endorsed hopelessness and helplessness in regards to obtaining housing and demanded that the hospital staff provide her with a solid discharge plan. She was informed that she has been referred to services to obtain housing and she has an outpatient therapist with whom she can follow up in regards to psychiatric care. The patient had been decreased to 30-minute checks for observation and allowed staff pass per her request. She was safe on all checks. She was notified of discharge planning process and plan for discharge today. She initially told specifications writer that she could call her mother for a ride home and she was encouraged to do so; however, she avoided this task. Discharge planning set up taxi to [facility]. The patient was encouraged to do so sooner rather than later in order to meet with her [facility] live in caregiver. Appointments were set up by discharge planning and the patient was appreciative of this. MARISA GREENE, SAMUEL [id number]/CPS #: [id number]
== END 2017-02-09 14:25 | disposition home or self-care (01) | DRG 755 ==
LOC: ED 14:38 → BSU 23:54
PROVIDERS: ADMIT Psychiatry & Neurology Psychiatry; ATTEND Psychiatry & Neurology Psychiatry
DX: F43.10 Post-traumatic stress disorder, unspecified (principal); E03.9 Hypothyroidism, unspecified; F10.10 Alcohol abuse, uncomplicated; Y90.0 Blood alcohol level of less than 20 mg/100 ml; F60.3 Borderline personality disorder; E66.9 Obesity, unspecified; E28.2 Polycystic ovarian syndrome; K21.9 Gastro-esophageal reflux disease without esophagitis; F41.0 Panic disorder [episodic paroxysmal anxiety]; M54.30 Sciatica, unspecified side; Z88.1 Allergy status to other antibiotic agents; Z68.34 Body mass index [BMI] 34.0-34.9, adult; Z88.8 Allergy status to other drugs, medicaments and biological substances
CPT/HCPCS: 36415; 76856; 80053; 80307; 80320; 80329; 81003; 81015; 84443; 84702; 85025; 87086; 90715; A9270-GY; G0480; J1885

== ENCOUNTER 2019-05-31 16:08 | Emergency (ER) | payer BC, OTHER ==
[2019-05-31 17:17] VITALS: BP 138/97
--- NOTE | 2019-05-31 17:37 | UC ---
FLU HPI - HPI Summary HPI Summary: 34-year-old female presents with 6 day history of nasal congestion, sinus pressure, sore throat, and a dry nonproductive cough. States the symptoms have been progressively worsening despite taking an cowe-zbv-[id number] cough and cold medication. Reports low-grade fever with a max temp of 100 F. Patient is a smoker. Denies ear pain, dysphagia, chest pain, shortness of breath, dental pain, nausea, vomiting, or diarrhea. - History of Current Complaint Chief Complaint: UCGeneralIllness Stated Complaint: UPPER RESPIRATORY CONCERN Time Seen by Provider: 05/31/19 17:19 Hx Obtained From: Patient Hx Last Menstrual Period: 08/25/16 Pain Intensity: 4 - Allergy/Home Medications Allergies/Adverse Reactions: Allergies Allergy/AdvReac Type Severity Reaction Status Date / Time amoxicillin Allergy Hives Verified 05/31/19 17:18 haloperidol [From Haldol] Allergy See Comment Verified 05/31/19 17:18 sumatriptan [From Imitrex] Allergy Headache Verified 05/31/19 17:18 Home Medications: Home Medications Cyclobenzaprine TAB* [Flexeril 10 MG TAB*] 10 mg PO ONCE PRN 05/31/19 [History Confirmed 05/31/19] Famotidine TAB* [Pepcid 20 MG TAB*] 20 mg PO DAILY 05/31/19 [History Confirmed 05/31/19] Gabapentin CAP(*) [Neurontin 300 CAP(*)] 600 mg PO TID 05/31/19 [History] Levothyroxine TAB* [Synthroid TAB*] 100 mcg PO DAILY 05/31/19 [History Confirmed 05/31/19] Propranolol TAB* [Inderal TAB*] 20 mg PO BID 05/31/19 [History Confirmed ] Ubidecarenone [Coq-10] 200 mg PO 05/31/19 [History] PMH/Surg Hx/FS Hx/Imm Hx Previously Healthy: Yes Psychological History: Anxiety, Depression, Bipolar Disorder, Post Traumatic Stress Disorder Other History Of: Negative For: Anticoagulant Therapy - Surgical History Surgical History: Yes Surgery Procedure, Year, and Place: C-Sections, 2008 2010, [place] [place] - Family History Known Family History: Positive: Hypertension Negative: Cardiac Disease, Diabetes - Social History Occupation: Works From/At Home Lives: Alone Alcohol Use: None Alcohol Amount: not since [place] 2014 Substance Use Type: Cocaine, Marijuana, Prescribed, Other Substance Use Comment - Amount & Last Used: occasionally Smoking Status (MU): Heavy Every Day Tobacco Smoker Type: Cigarettes Amount Used/How Often: 4 packs per week Length of Time of Smoking/Using Tobacco: 10 Years Have You Smoked in the Last Year: Yes Household Exposure Type: Cigarettes - Immunization History Most Recent Influenza Vaccination: never had one Most Recent Tetanus Shot: 2009 Most Recent Pneumonia Vaccination: NA Review of Systems All Other Systems Reviewed And Are Negative: Yes Constitutional: Positive: Fever, Fatigue. Negative: Chills Skin: Negative: Rash Eyes: Negative: Drainage, Eye Redness ENT: Positive: Sore Throat, Nasal Discharge, Sinus Congestion, Sinus Pain/ Tenderness. Negative: Ear Ache Respiratory: Positive: Cough. Negative: Shortness Of Breath Cardiovascular: Negative: Palpitations, Chest Pain Gastrointestinal: Negative: Abdominal Pain, Vomiting, Diarrhea, Nausea Genitourinary: Positive: Negative Musculoskeletal: Positive: Negative Neurological: Positive: Negative Is Patient Immunocompromised?: No Physical Exam - Summary Physical Exam Summary: GENERAL APPEARANCE: Alert and cooperative adult female who appears to be in no acute distress. EYES: Conjunctiva clear. No drainage. PERRL, EOM intact. Vision is grossly intact. EARS: External auditory canals and tympanic membranes clear, hearing grossly intact. NOSE: Moderate nasal congerstion. No nasal discharge. THROAT: Pharyngeal erythema with post-nasal drip. No tonsilar inflammation, swelling, exudate, or lesions. Uvula midline. NECK: Neck supple, non-tender without lymphadenopathy. CARDIAC: Normal S1 and S2. No S3, S4 or murmurs. Rhythm is regular. There is no peripheral edema, cyanosis or pallor. Extremities are warm and well perfused. Capillary refill is less than 2 seconds. Peripheral pulses intact. LUNGS: Clear to auscultation without rales, rhonchi, wheezing or diminished breath sounds. Dry, non-productive cough. ABDOMEN: Positive bowel sounds. Soft, nondistended, nontender. No guarding or rebound. No masses or hepatosplenomegally. MUSKULOSKELETAL: ROM intact to all extremities. No joint erythema or tenderness. Normal muscular development. Normal gait. SKIN: Skin normal color, texture and turgor with no lesions or eruptions. Triage Information Reviewed: Yes Vital Signs: Initial Vital Signs Temp 99.7 F 12/26/19 17:11 Pulse 79 05/31/19 17:11 Resp 18 05/31/19 17:11 BP 138/97 05/31/19 17:11 Pulse Ox 99 05/31/19 17:11 Vital Signs Reviewed: Yes Flu Course/Dx - Course Course Of Treatment: 34-year-old female presents with 6 day history of nasal congestion, sinus pressure, sore throat, and a dry nonproductive cough. States the symptoms have been progressively worsening despite taking an [id number]-[id number] cough and cold medication. Reports low-grade fever with a max temp of 100 F. Patient is a smoker. Denies ear pain, dysphagia, chest pain, shortness of breath, dental pain, nausea, vomiting, or diarrhea. Afebrile. Vital signs stable. Patient had moderate nasal congestion, pharyngeal erythema postnasal drip, no tonsillar swelling or exudate, no cervical lymphadenopathy, clear bilateral breath sounds , dry nonproductive cough, and otherwise unremarkable exam. Discussed with the patient that her history and physical are suggestive of an upper respiratory infection that is likely viral in origin however patient is concerned with the worsening of symptoms that she will continue to worsen and was treated with an antibiotic. We discussed the risks and benefits treating with an antibiotic especially if this is a viral origin and patient is continuing to elect to begin treatment. She was prescribed doxycycline 100 mg twice a day 7 days and recommended symptomatic treatment for an upper respiratory infection. She is to follow-up with her primary care provider in 7 days if symptoms are not improving. Anticipatory guidance and warning symptoms are reviewed with the patient. Verbalizes understanding and agrees with plan of care. - Differential Dx/Diagnosis Differential Diagnosis/HQI/PQRI: Bronchitis, Influenza, Pneumonia, Upper Respiratory Infection Provider Diagnosis: URI (upper respiratory infection) Discharge ED - Sign-Out/Discharge Documenting (check all that apply): Patient Departure All imaging exams completed and their final reports reviewed: No Studies - Discharge Plan Condition: Stable Disposition: HOME Prescriptions: Doxycycline Hyclate 100 mg PO BID #13 tablet Patient Education Materials: Upper Respiratory Infection (ED) Referrals: No Primary Care Phys,NOPCP [Primary Care Provider] - Additional Instructions: Your history and exam are consistent with an upper respiratory infection. Start doxycycline 100 mg twice a day for 7 days. We gave you the first dose in the clinic. Drink plenty of fluids to avoid dehydration especially if you are running any fever. Use a saline rinse kit such as Neti Pot or NeilMed at least twice a day to help thin secretions and promote drainage of the sinuses. Use over the counter fluticasone (Flonase) nasal spray 2 sprays each nostril once daily. Take over the counter acetaminophen (Tylenol) or ibuprofen (Advil, Motrin) according to directions as needed for pain or fever. Use salt water gargles several times a day if you have a sore throat. You may also use Chloraseptic spray or Cepacol lonzenges according to directions which contain a numbing medication and can provide some temporary relief from your sore throat. Follow up with your primary care provider in 7 days if symptoms persist. Seek immediate medical attention in the emergency room if you have fever greater than 100.5 F despite taking acetaminophen or ibuprofen, have chest pain , difficulty breathing, are unable to swallow, or have any worsening of symptoms. - Billing Disposition and Condition Condition: STABLE Disposition: Home
[2019-05-31] MEDS ORDERED: DOXYcycline CAP(*) 100 MG PO ONE (17:47)
== END 2019-05-31 17:54 | disposition home or self-care (01) ==
LOC: UCCORT 16:08
DX: J06.9 Acute upper respiratory infection, unspecified (principal); J34.89 Other specified disorders of nose and nasal sinuses; F31.9 Bipolar disorder, unspecified; F41.9 Anxiety disorder, unspecified; F17.210 Nicotine dependence, cigarettes, uncomplicated; Z79.899 Other long term (current) drug therapy; Z88.8 Allergy status to other drugs, medicaments and biological substances; Z88.0 Allergy status to penicillin
CPT/HCPCS: 99212; A9270-GY; G0463